=== PATIENT | female | born 1995 | race Caucasian/White ===

== ENCOUNTER 2017-08-23 05:49 | Emergency (ER) | payer OTHER ==
[~2017-08-23] VITALS: Ht 175.3 cm; Wt 120.6 kg
[2017-08-23] MEDS ORDERED: SODIUM CHLORIDE 0.9% 1,000ML IVBOLUS ONE (06:30)
[2017-08-23] MEDS ORDERED: SODIUM CHLORIDE FLUSH 10ML SYR IVF ONE (06:30)
[2017-08-23] MEDS ORDERED: PROMETHAZINE 25 MG/ML, 1ML IM ONE (06:30)
[2017-08-23] MEDS ORDERED: PROMETHAZINE 25 MG/ML, 1ML ONE (06:39)
[2017-08-23 06:43] LABS: BASOPHILS # (AUTO) 0.06 x10^3/uL (0-0.1); BASOPHILS % (AUTO) 1 % (0-1); EOSINOPHILS # (AUTO) 0.03 x10^3/uL (0-0.4); EOSINOPHILS % (AUTO) 0 % (1-7); LYMPHOCYTES # (AUTO) 1.92 x10^3/uL (1-3.4); LYMPHOCYTES % (AUTO) 15 % (22-44); MD NO; MEAN CORPUSCULAR HEMOGLOBIN 29.8 pg (27.0-34.8); MEAN CORPUSCULAR HGB CONC 34.5 g/dL (32.4-35.8); MEAN CORPUSCULAR VOLUME 86.4 fL (80-100); MEAN PLATELET VOLUME 8.2 fL (7.4-10.4); MONOCYTES # (AUTO) 1.04 x10^3/uL (0.2-0.8); MONOCYTES % (AUTO) 8 % (2-9); NEUTROPHILS # (AUTO) 9.59 x10^3/uL (1.8-6.8); NEUTROPHILS % (AUTO) 76 % (42-75); PLATELET COUNT 397 x10^3/uL (130-400); RED BLOOD COUNT 5.23 x10^6/uL (3.82-5.3); RED CELL DISTRIBUTION WIDTH 12.7 % (9.6-15.2)
[2017-08-23 07:23] LABS: ALBUMIN 3.4 g/dL (3.4-5.0); ANION GAP 14 mmol/L (5-15); CALCIUM 8.4 mg/dL (8.5-10.1); CHLORIDE 108 mmol/L (98-107); CREATININE 0.76 mg/dL (0.55-1.02)
[2017-08-23 07:28] LABS: ALANINE AMINOTRANSFERASE 17 U/L (12-78); ALKALINE PHOSPHATASE 106 U/L (45-117); BILIRUBIN,TOTAL 0.8 mg/dL (0.2-1.0); TOTAL PROTEIN 6.8 g/dL (6.4-8.2)
[2017-08-23] MEDS ORDERED: POTASSIUM CHLORIDE 20 MEQ TAB.ER.PRT ONE ×2 (10:17→10:34)
[2017-08-23] MEDS ORDERED: POTASSIUM CHLORIDE 20 MEQ TAB.ER.PRT PO ONE (10:30)
[2017-08-23] MEDS ORDERED: METOCLOPRAMIDE 5 MG/ML, 2ML ONE (10:56)
[2017-08-23] MEDS ORDERED: METOCLOPRAMIDE 5 MG/ML, 2ML IVPush ONE (11:00)
[2017-08-23] MEDS ORDERED: AcetaZOLAMIDE INJ 500 MG IVPush ONE (11:00)
[2017-08-23 11:48] VITALS: BP 139/84
== END 2017-08-23 11:53 | disposition home or self-care (01) ==
LOC: ED 06:04
DX: R11.2 Nausea with vomiting, unspecified (principal); R10.84 Generalized abdominal pain; I10 Essential (primary) hypertension; T50.995A Adverse effect of other drugs, medicaments and biological substances, initial encounter; Y92.89 Other specified places as the place of occurrence of the external cause; Z91.040 Latex allergy status
CPT/HCPCS: 36415; 80053; 83690; 84703; 85025; 96372; 96374; 96375; 99284; J1120; J2550; J2765; J7030

== ENCOUNTER → 2017-09-24 | Outpatient (CLI) | payer OTHER | END | disposition home or self-care (01) | LOC: PETCFH 08:07 | PROVIDERS: ATTEND Internal Medicine Gastroenterology | DX: R11.2 Nausea with vomiting, unspecified (principal) | CPT/HCPCS: 78264; A9541 ==

== ENCOUNTER 2020-10-29 11:34 | Emergency (ER) | payer OTHER ==
[~2020-10-29] VITALS: Ht 175.3 cm; Wt 148.2 kg
--- NOTE | 2020-10-29 11:48 | NUR ---
Noted pt walking from triage with steady gait and emesis bag in hand.
[2020-10-29] MEDS ORDERED: AMPH20TA2 PO (12:02)
[2020-10-29] MEDS ORDERED: VARE1TAB20 PO (12:02)
[2020-10-29] MEDS ORDERED: [UNRECOGNIZED DRUG - OTHER] PO ×2 (12:02)
[2020-10-29] MEDS ORDERED: SERT50TA PO (12:02)
[2020-10-29] MEDS ORDERED: PRAZ1CAP2 PO (12:02)
[2020-10-29] MEDS ORDERED: ONDANSETRON 2MG/ML, 2ML ONE ×2 (12:26→15:31)
[2020-10-29] MEDS ORDERED: MORPHINE SULFATE 4 MG/ML, 1ML ONE (12:26)
[2020-10-29] MEDS ORDERED: FAMOTIDINE 20 MG/2 ML ONE (12:26)
[2020-10-29] MEDS ORDERED: MORPHINE SULFATE 4 MG/ML, 1ML IVPush PRN (12:30)
[2020-10-29] MEDS ORDERED: FAMOTIDINE 20 MG/2 ML IVPush ONE (12:30)
[2020-10-29] MEDS ORDERED: SODIUM CHLORIDE 0.9% 1,000ML IVBOLUS ONE (12:30)
[2020-10-29] MEDS ORDERED: ONDANSETRON 2MG/ML, 2ML IVPush ONE ×2 (12:30→15:30)
--- NOTE | 2020-10-29 12:45 | NUR ---
IV started on second attempt to R hand with first attempt covered with gauze dsg. Pt provided medications as ordered and IVF started at wide open rate, though slower due to small cath size needed to get IV site started. Pt aware. Pt had dry heaving episodes x2 while trying to start line.
[2020-10-29 12:48] LABS: ALANINE AMINOTRANSFERASE 26 U/L (12-78); ANION GAP 7 mmol/L (5-15); CALCIUM 9.5 mg/dL (8.5-10.1); CHLORIDE 111 mmol/L (98-107)
[2020-10-29 12:54] LABS: ALKALINE PHOSPHATASE 142 U/L (45-117); BILIRUBIN,TOTAL 0.6 mg/dL (0.2-1.0); CREATININE 0.84 mg/dL (0.55-1.02)
--- NOTE | 2020-10-29 12:55 | NUR ---
Pt taken by nancy to US at this time.
--- NOTE | 2020-10-29 13:41 | NUR ---
Noted pt just returned to room from US.
[2020-10-29 14:02] LABS: MEAN CORPUSCULAR HEMOGLOBIN 30.6 pg (27.0-34.8); MEAN CORPUSCULAR HGB CONC 34.6 g/dL (32.4-35.8); MEAN PLATELET VOLUME 8.2 fL (7.4-10.4); PLATELET COUNT 374 x10^3/uL (130-400); RED BLOOD COUNT 4.76 x10^6/uL (3.82-5.3); RED CELL DISTRIBUTION WIDTH 13.2 % (9.6-15.2)
--- NOTE | 2020-10-29 14:19 | NUR ---
IVF still running well though slow due to cath gauge used for IV site. Pt states some decrease nausea and pain with resolution of emesis attempts for the last 30+ minutes.
[2020-10-29 14:40] LABS: MD YES
[2020-10-29 14:42] LABS: BAND#(MANUAL) 0.16 x10^3/uL; BANDS%(MANUAL) 1 % (0-7); LYMPH#(MANUAL) 1.26 x10^3/uL (1-3.4); LYMPHS% (MANUAL) 8 % (22-44); MONOS#(MANUAL) 0.47 x10^3/uL (0.3-2.7); MONOS% (MANUAL) 3 % (2-9); SEGS% (MANUAL) 88 % (42-75)
[2020-10-29 14:44] LABS: <PLATELET ESTIMATE> ADEQUATE; <PLT MORPHOLOGY> NORMAL PLT MORPH; <RBC MORPHOLOGY> NORMAL; PMNS WITH VACUOLES 1+
[2020-10-29 14:49] LABS: MICROSCOPIC NOT IND
--- NOTE | 2020-10-29 14:55 | NUR ---
Rosa Isela RN states a new IV site was started for CT and pt wanting more zofran for nausea return. notified.
--- NOTE | 2020-10-29 15:14 | NUR ---
Report given to TUNG Moreno and care transferred.
[2020-10-29] MEDS ORDERED: OMNIPAQUE 350 MG/ML, 150 ML BOTTLE ONE (15:48)
[2020-10-29] MEDS ORDERED: PROMETHAZINE 25 MG/ML, 1ML ONE (16:27)
[2020-10-29] MEDS ORDERED: PROMETHAZINE 25 MG/ML, 1ML IM ONE (16:30)
[2020-10-29 16:54] VITALS: BP 128/81
== END 2020-10-29 16:56 | disposition home or self-care (01) ==
LOC: ED 14:05
DX: K29.00 Acute gastritis without bleeding (principal); R10.31 Right lower quadrant pain; R11.2 Nausea with vomiting, unspecified; R10.11 Right upper quadrant pain; Z87.891 Personal history of nicotine dependence
CPT/HCPCS: 36415; 74177; 76830; 80053; 81003; 83690; 84703; 85025; 96361; 96372; 96374; 96375; 96376; 99285; J2270; J2405; J2550; J7030; Q9967

== ENCOUNTER 2020-10-30 17:19 | Inpatient (IN) | payer OTHER ==
[~2020-10-30] VITALS: Ht 175.3 cm; Wt 152.2 kg
[~2020-10-30 17:19] MED LIST: AMPH20TA2 PO; PRAZ1CAP2 PO; SERT50TA PO; VARE1TAB20 PO; [UNRECOGNIZED DRUG - OTHER] PO
[2020-10-30] MEDS ORDERED: METOCLOPRAMIDE 5 MG/ML, 2ML IVPush ONE (18:00)
[2020-10-30] MEDS ORDERED: SODIUM CHLORIDE FLUSH 10ML SYR IVF ONE (18:00)
[2020-10-30] MEDS ORDERED: FAMOTIDINE 20 MG/2 ML IVPush ONE ×2 (18:00→21:30)
[2020-10-30] MEDS ORDERED: MAALOX/HYOSCYAMINE/LIDOCAINE 45 ML BTL PO ONE (18:00)
[2020-10-30] MEDS ORDERED: LACTATED RINGERS 1,000 ML IV ONE (18:00)
[2020-10-30] MEDS ORDERED: FAMOTIDINE 20 MG/2 ML ONE (18:07)
[2020-10-30] MEDS ORDERED: METOCLOPRAMIDE 5 MG/ML, 2ML ONE (18:07)
[2020-10-30] MEDS ORDERED: MAALOX/HYOSCYAMINE/LIDOCAINE 45 ML BTL ONE (18:07)
[2020-10-30 18:35] LABS: BASOPHILS % (AUTO) 0 % (0-1); EOSINOPHILS % (AUTO) 0 % (1-7); LYMPHOCYTES % (AUTO) 16 % (22-44); MEAN CORPUSCULAR HEMOGLOBIN 30.4 pg (27.0-34.8); MEAN CORPUSCULAR HGB CONC 34.3 g/dL (32.4-35.8); MEAN PLATELET VOLUME 8.2 fL (7.4-10.4); MONOCYTES % (AUTO) 5 % (2-9); NEUTROPHILS % (AUTO) 78 % (42-75); PLATELET COUNT 405 x10^3/uL (130-400); RED BLOOD COUNT 4.56 x10^6/uL (3.82-5.3); RED CELL DISTRIBUTION WIDTH 13.3 % (9.6-15.2)
[2020-10-30 18:39] LABS: MD NO
[2020-10-30 18:40] LABS: ALANINE AMINOTRANSFERASE 35 U/L (12-78); ALBUMIN 4.2 g/dL (3.4-5.0); ANION GAP 8 mmol/L (5-15); CALCIUM 9.3 mg/dL (8.5-10.1); CHLORIDE 110 mmol/L (98-107); CREATININE 0.88 mg/dL (0.55-1.02)
[2020-10-30 18:42] LABS: ALKALINE PHOSPHATASE 137 U/L (45-117); BILIRUBIN,TOTAL 0.7 mg/dL (0.2-1.0)
--- NOTE | 2020-10-30 18:52 | NUR ---
RECIEVED REPORT FROM TUNG BARCENAS.
--- NOTE | 2020-10-30 19:13 | NUR ---
ERP AT BEDSIDE FOR REASSESS AND POC
[2020-10-30] MEDS ORDERED: POTASSIUM CHLORIDE 40 MEQ in SODIUM CHLORIDE 0.9% 500 ML IV ONE (19:30)
--- NOTE | 2020-10-30 19:47 | NUR ---
REPORT GIVEN TO BUDDY RUBY.
--- NOTE | 2020-10-30 20:09 | NUR ---
HOSPITALIST AT BEDSIDE FOR ADMIT
[2020-10-30] MEDS ORDERED: PROMETHAZINE 25 MG/ML, 1ML IM ONE (20:30)
[2020-10-30 20:49] VITALS: BP 138/96
[2020-10-30] MEDS ORDERED: MELATONIN 5 MG TABLET PO PRN (21:30)
[2020-10-30] MEDS ORDERED: ENALAPRILAT 1.25 MG/ML, 2ML IVPush PRN (21:30)
[2020-10-30] MEDS ORDERED: DOCUSATE 100 MG CAPSULE PO PRN (21:30)
[2020-10-30] MEDS: KETOROLAC 30 MG/1 ML IV PRN (22:20)
[2020-10-30] MEDS: LACTATED RINGERS 1,000 ML IV SCH (23:46)
[2020-10-31 01:11] VITALS: BP 138/81
[2020-10-31] MEDS: PROMETHAZINE 25 MG/ML, 1ML IM PRN ×5 (01:35→19:51)
[2020-10-31] MEDS: MECLIZINE CHEWABLE 25 MG TAB PO PRN ×2 (03:59→13:59)
[2020-10-31] MEDS: LIDODERM 5% PATCH TD PRN (04:05)
[2020-10-31 05:38] LABS: BASOPHILS % (AUTO) 0 % (0-1); EOSINOPHILS % (AUTO) 0 % (1-7); LYMPHOCYTES % (AUTO) 21 % (22-44); MEAN CORPUSCULAR HEMOGLOBIN 30.8 pg (27.0-34.8); MEAN CORPUSCULAR HGB CONC 35.2 g/dL (32.4-35.8); MEAN PLATELET VOLUME 7.9 fL (7.4-10.4); MONOCYTES % (AUTO) 7 % (2-9); NEUTROPHILS % (AUTO) 71 % (42-75); PLATELET COUNT 336 x10^3/uL (130-400); RED BLOOD COUNT 4.25 x10^6/uL (3.82-5.3); RED CELL DISTRIBUTION WIDTH 13.1 % (9.6-15.2)
[2020-10-31 05:43] LABS: ANION GAP 7 mmol/L (5-15); CHLORIDE 110 mmol/L (98-107)
[2020-10-31 05:51] LABS: MD NO
[2020-10-31] MEDS: KETOROLAC 30 MG/1 ML IV PRN (06:28)
[2020-10-31 07:29] VITALS: BP 113/68
[2020-10-31] MEDS: LACTATED RINGERS 1,000 ML IV SCH (07:49)
[2020-10-31] MEDS: POTASSIUM CHLORIDE 20 MEQ in LACTATED RINGERS 1,000 ML IV SCH ×2 (09:18→18:57)
[2020-10-31] MEDS ORDERED: PROCHLORPERAZINE 5 MG/ML, 2ML IVPush ONE (10:00)
[2020-10-31] MEDS: METOCLOPRAMIDE 5 MG/ML, 2ML IVPush SCH ×3 (10:06→21:41)
[2020-10-31] MEDS: AcetaZOLAMIDE ER 500 MG CAPSULE PO SCH (12:11)
[2020-10-31] MEDS ORDERED: Meclizine PO (13:48)
[2020-10-31] MEDS ORDERED: LORA2ORA7 PO ×2 (13:48)
[2020-10-31] MEDS ORDERED: PROM25SU35 PR ×2 (13:48)
[2020-10-31 14:03] VITALS: BP 132/82
[2020-10-31] MEDS: LORazepam 2 MG/ML, 1ML IVPush PRN ×2 (17:17→21:41)
[2020-10-31 21:06] VITALS: BP 130/89
[2020-11-01] MEDS: PROMETHAZINE 25 MG/ML, 1ML IM PRN ×4 (01:29→19:47)
[2020-11-01 01:33] VITALS: BP 127/84
[2020-11-01] MEDS: METOCLOPRAMIDE 5 MG/ML, 2ML IVPush SCH (04:17)
[2020-11-01] MEDS: LORazepam 2 MG/ML, 1ML IVPush PRN (04:54)
[2020-11-01] MEDS: POTASSIUM CHLORIDE 20 MEQ in LACTATED RINGERS 1,000 ML IV SCH ×2 (05:33→21:00)
[2020-11-01 06:59] VITALS: BP 125/86
[2020-11-01] MEDS: AcetaZOLAMIDE ER 500 MG CAPSULE PO SCH (08:15)
[2020-11-01] MEDS: METOCLOPRAMIDE 10MG TABLET PO SCH ×3 (12:03→21:00)
[2020-11-01 14:00] VITALS: BP 118/79
[2020-11-01] MEDS ORDERED: PROCHLORPERAZINE 10MG TABLET PO PRN (15:00)
[2020-11-01 16:51] VITALS: BP 118/79
[2020-11-01] MEDS ORDERED: LORazepam 2 MG/ML, 1ML IVPush PRN (17:00)
[2020-11-01 19:06] VITALS: BP 105/70
[2020-11-01] MEDS: KETOROLAC 30 MG/1 ML IV PRN (21:11)
[2020-11-01] MEDS: PROCHLORPERAZINE 5 MG/ML, 2ML IVPush PRN (22:47)
[2020-11-02 01:01] VITALS: BP 113/81
[2020-11-02] MEDS: PROMETHAZINE 25 MG/ML, 1ML IM PRN ×2 (01:12→08:55)
[2020-11-02 05:34] LABS: CHLORIDE 112 mmol/L (98-107)
[2020-11-02 05:37] LABS: BASOPHILS % (AUTO) 0 % (0-1); EOSINOPHILS % (AUTO) 1 % (1-7); LYMPHOCYTES % (AUTO) 27 % (22-44); MEAN CORPUSCULAR HEMOGLOBIN 31.1 pg (27.0-34.8); MEAN CORPUSCULAR HGB CONC 34.9 g/dL (32.4-35.8); MEAN PLATELET VOLUME 7.8 fL (7.4-10.4); MONOCYTES % (AUTO) 7 % (2-9); NEUTROPHILS % (AUTO) 65 % (42-75); PLATELET COUNT 315 x10^3/uL (130-400); RED BLOOD COUNT 4.25 x10^6/uL (3.82-5.3); RED CELL DISTRIBUTION WIDTH 13.1 % (9.6-15.2)
[2020-11-02 05:43] LABS: ALANINE AMINOTRANSFERASE 27 U/L (12-78); ALBUMIN 3.7 g/dL (3.4-5.0); ALKALINE PHOSPHATASE 116 U/L (45-117); ANION GAP 6 mmol/L (5-15); BILIRUBIN,TOTAL 1.1 mg/dL (0.2-1.0); CALCIUM 8.8 mg/dL (8.5-10.1); CREATININE 0.71 mg/dL (0.55-1.02); TOTAL PROTEIN 6.9 g/dL (6.4-8.2)
[2020-11-02 06:04] LABS: MD NO
[2020-11-02] MEDS: METOCLOPRAMIDE 10MG TABLET PO SCH ×2 (06:25→11:58)
[2020-11-02 07:49] VITALS: BP 114/82
[2020-11-02] MEDS: AcetaZOLAMIDE ER 500 MG CAPSULE PO SCH (07:50)
[2020-11-02] MEDS: LIDODERM 5% PATCH TD PRN (07:51)
[2020-11-02] MEDS: PROCHLORPERAZINE 5 MG/ML, 2ML IVPush PRN (07:51)
[2020-11-02] MEDS ORDERED: SERTRALINE 50MG TABLET PO SCH (09:00)
[2020-11-02] MEDS ORDERED: ONDA4TAB7 PO (10:40)
[2020-11-02] MEDS ORDERED: POTASSIUM CHLORIDE 20 MEQ TAB.ER.PRT PO ONE (11:00)
[2020-11-02] MEDS: POTASSIUM CHLORIDE 20 MEQ in LACTATED RINGERS 1,000 ML IV SCH (11:28)
== END 2020-11-02 12:55 | disposition home or self-care (01) | DRG 392 ==
LOC: ED 18:31 → EDIP 19:17 → 3N 20:45 → DCLOUNGE 11-02 12:50
PROVIDERS: ADMIT Internal Medicine; ATTEND Internal Medicine
DX: A08.4 Viral intestinal infection, unspecified (principal); Z68.42 Body mass index [BMI] 45.0-49.9, adult; F39 Unspecified mood [affective] disorder; R79.89 Other specified abnormal findings of blood chemistry; E66.01 Morbid (severe) obesity due to excess calories; E86.0 Dehydration; E87.6 Hypokalemia; F41.8 Other specified anxiety disorders; F90.9 Attention-deficit hyperactivity disorder, unspecified type; G93.2 Benign intracranial hypertension; Z79.899 Other long term (current) drug therapy; Z79.891 Long term (current) use of opiate analgesic; Z79.01 Long term (current) use of anticoagulants; Z91.040 Latex allergy status; Z88.1 Allergy status to other antibiotic agents; Z88.8 Allergy status to other drugs, medicaments and biological substances
CPT/HCPCS: 36415; 99285; Q0164; 80048; 80053; 83690; 83735; 85025; 93005; G0378; J1885; J2550; J3480; J0780; J2060; J2765; J7040; J7120; Q0181

== ENCOUNTER 2020-11-23 10:02 | Emergency (ER) | payer OTHER ==
[~2020-11-23] VITALS: Ht 175.3 cm; Wt 145.2 kg
[~2020-11-23 10:02] MED LIST changes: +LORA2ORA7 PO; +Meclizine PO; +ONDA4TAB7 PO; +PROM25SU35 PR
[2020-11-23] MEDS ORDERED: ASPIRIN 81 MG TABLET CHEW ONE (11:14)
[2020-11-23] MEDS ORDERED: ONDANSETRON ODT 4 MG ONE ×2 (11:14→12:05)
[2020-11-23] MEDS ORDERED: ASPIRIN 81 MG TABLET CHEW PO ONE (11:30)
[2020-11-23] MEDS ORDERED: ONDANSETRON ODT 4 MG PO ONE (11:30)
[2020-11-23 11:47] LABS: BASOPHILS % (AUTO) 1 % (0-1); EOSINOPHILS % (AUTO) 0 % (1-7); LYMPHOCYTES % (AUTO) 20 % (22-44); MEAN CORPUSCULAR HEMOGLOBIN 30.3 pg (27.0-34.8); MEAN CORPUSCULAR HGB CONC 34.2 g/dL (32.4-35.8); MEAN PLATELET VOLUME 7.8 fL (7.4-10.4); MONOCYTES % (AUTO) 7 % (2-9); NEUTROPHILS % (AUTO) 72 % (42-75); PLATELET COUNT 345 x10^3/uL (130-400); RED BLOOD COUNT 4.78 x10^6/uL (3.82-5.3)
[2020-11-23 11:52] LABS: ALBUMIN 4.2 g/dL (3.4-5.0); ANION GAP 9 mmol/L (5-15); CALCIUM 9.4 mg/dL (8.5-10.1); CHLORIDE 107 mmol/L (98-107)
[2020-11-23 11:56] LABS: ALANINE AMINOTRANSFERASE 54 U/L (12-78); ALKALINE PHOSPHATASE 126 U/L (45-117); CREATININE 0.69 mg/dL (0.55-1.02); TOTAL PROTEIN 8.1 g/dL (6.4-8.2); TROPONIN I < 0.015 ng/mL (0.000-0.045)
[2020-11-23 12:05] LABS: MD SCAN
[2020-11-23 13:04] VITALS: BP 112/71
--- NOTE | 2020-11-23 13:04 | NUR ---
PT REC'VD DISCHARGE INSTRUCTIONS AND EDUCATION. PT HAD NO FURTHER QUESTIONS.
--- NOTE | 2020-11-23 13:14 | NUR ---
PT AMBULATED TO GA AREA, STEADY GAIT.
== END 2020-11-23 13:16 | disposition home or self-care (01) ==
LOC: ED 13:10
DX: R07.89 Other chest pain (principal); R11.2 Nausea with vomiting, unspecified; E87.6 Hypokalemia; I10 Essential (primary) hypertension; Z87.891 Personal history of nicotine dependence
CPT/HCPCS: 36415; 71045; 80053; 84484; 84703; 85025; 93005; 99285; Q0162